=== PATIENT | male | born 1985 | race Caucasian/White ===

== ENCOUNTER 2019-04-25 02:45 | Emergency (ER) | payer OTHER ==
[~2019-04-25] VITALS: Ht 175.3 cm; Wt 86.4 kg
[~2019-04-25 02:45] MED LIST: AUGM875T27 PO; CLAR10CA3 PO; OXYC1TAB23 PO; RALTEGRAVIR 400 MG TAB (ISENTRESS) PO SCH; TRUVADA 200MG/300MG TABLET PO SCH
[2019-04-25] MEDS ORDERED: [UNRECOGNIZED DRUG - OTHER] IM ONE (03:30)
[2019-04-25] MEDS ORDERED: ADACEL/BOOSTRIX VACCINE (DIPHTH/PERTUSS/ACELL/TETANUS)0.5ML SYR (90715) IM ONE (03:30)
[2019-04-25 03:55] LABS: BASO # 0.1 10^3/uL (0.0-0.2); BASO % 0.6 % (0.0-1.0); EOS # 0.1 10^3/uL (0.0-0.5); EOS % 1.4 % (0.0-3.0); HEMATOCRIT 47.2 % (42.0-52.0); HEMOGLOBIN 16.2 g/dl (13.5-17.5); LYMPH # 2.1 10^3/uL (1.5-5.0); LYMPH % 23.5 % (24.0-44.0); MEAN CORPUSCULAR HEMOGLOBIN 31.8 pg (27.0-33.0); MEAN CORPUSCULAR HGB CONC 34.3 g/dl (32.0-36.5); MEAN CORPUSCULAR VOLUME 92.5 fl (80.0-96.0); MONO # 0.7 10^3/uL (0.0-0.8); MONO % 8.4 % (0.0-5.0); NEUTROPHILS # 5.8 10^3/uL (1.5-8.5); NEUTROPHILS % 65.9 % (36.0-66.0); PLATELET COUNT, AUTOMATED 223 10^3/uL (150-450); WHITE BLOOD COUNT 8.8 10^3/uL (4.0-10.0)
[2019-04-25 04:19] LABS: ALBUMIN 4.1 GM/DL (3.2-5.2); ALT/SGPT 57 U/L (12-78); BILIRUBIN,TOTAL 0.5 MG/DL (0.2-1.0); BLOOD UREA NITROGEN 8 MG/DL (7-18); CALCIUM LEVEL 8.8 MG/DL (8.5-10.1); CARBON DIOXIDE LEVEL 27 MEQ/L (21-32); CHLORIDE LEVEL 104 MEQ/L (98-107); CREATININE FOR GFR 0.95 MG/DL (0.70-1.30); GLOMERULAR FILTRATION RATE > 60.0 (>60); GLUCOSE, FASTING 108 MG/DL (70-100); POTASSIUM SERUM 3.4 MEQ/L (3.5-5.1); SODIUM LEVEL 139 MEQ/L (136-145); TOTAL PROTEIN 7.5 GM/DL (6.4-8.2)
[2019-04-25] MEDS ORDERED: RALT40TA PO ×2 (04:41→04:44)
[2019-04-25] MEDS ORDERED: TRUVTAB PO ×2 (04:41→04:44)
[2019-04-25] MEDS ORDERED: EXPOSURE KIT-ADULT 7 DAY SUPPLY PO ONE (04:45)
[2019-04-25 04:55] VITALS: BP 146/92
[2019-04-26 10:55] LABS: HEPATITIS B SURFACE ANTIBODY NEGATIVE (POSITIVE)
[2019-04-26 11:05] LABS: HEPATITIS B SURFACE ANTIGEN NEGATIVE (NEGATIVE)
[2019-04-26 11:34] LABS: HEPATITIS C VIRUS ABY INDEX 0.1 INDEX (<0.8); HIV 1&2 SCREEN CENTAUR NEGATIVE (NEGATIVE)
== END 2019-04-25 05:46 | disposition home or self-care (01) ==
LOC: M ED 02:45
DX: S81.832A Puncture wound without foreign body, left lower leg, initial encounter (principal); W46.0XXA Contact with hypodermic needle, initial encounter; Y92.89 Other specified places as the place of occurrence of the external cause; Y99.0 Civilian activity done for income or pay; Z77.21 Contact with and (suspected) exposure to potentially hazardous body fluids; Z79.899 Other long term (current) drug therapy; J30.1 Allergic rhinitis due to pollen; J30.81 Allergic rhinitis due to animal (cat) (dog) hair and dander; F17.210 Nicotine dependence, cigarettes, uncomplicated

== ENCOUNTER → 2019-06-06 | Outpatient (REF) | payer OTHER ==
[~2019-06-06] MED LIST changes: +RALT40TA PO; -RALTEGRAVIR 400 MG TAB (ISENTRESS) PO SCH; -TRUVADA 200MG/300MG TABLET PO SCH; +TRUVTAB PO
[2019-06-06 11:18] LABS: ALBUMIN 4.1 GM/DL (3.2-5.2); ALT/SGPT 59 U/L (12-78); BLOOD UREA NITROGEN 10 MG/DL (7-18); CARBON DIOXIDE LEVEL 29 MEQ/L (21-32); CHLORIDE LEVEL 104 MEQ/L (98-107); CHOLESTEROL LEVEL 170 MG/DL (<200); CHOLESTEROL RISK RATIO 3.541 (<5); CREATININE FOR GFR 0.94 MG/DL (0.70-1.30); GLOMERULAR FILTRATION RATE > 60.0 (>60); GLUCOSE, FASTING 99 MG/DL (70-100); HDL CHOLESTEROL 48 MG/DL (>40); LDL CHOLESTEROL 104 MG/DL (<100); NON-HDL-C 122 MG/DL; POTASSIUM SERUM 4.2 MEQ/L (3.5-5.1); SODIUM LEVEL 140 MEQ/L (136-145); TOTAL PROTEIN 7.8 GM/DL (6.4-8.2); TRIGLYCERIDES LEVEL 92 MG/DL (<150)
[2019-06-07 09:50] LABS: HEPATITIS B SURFACE ANTIGEN NEGATIVE (NEGATIVE)
[2019-06-07 09:51] LABS: HEPATITIS B SURFACE ANTIBODY NEGATIVE (POSITIVE)
[2019-06-07 10:26] LABS: HIV 1&2 SCREEN CENTAUR NEGATIVE (NEGATIVE)
== END ==
LOC: M SFHCPLAZ 08:16
PROVIDERS: ATTEND Family Medicine
DX: Z13.220 Encounter for screening for lipoid disorders (principal); W27.3XXA Contact with needle (sewing), initial encounter; X58.XXXA Exposure to other specified factors, initial encounter

== ENCOUNTER → 2019-07-29 | Outpatient (CLI) | payer OTHER ==
[2019-08-02 11:06] LABS: HEPATITIS B SURFACE ANTIBODY NEGATIVE (POSITIVE); HEPATITIS B SURFACE ANTIGEN NEGATIVE (NEGATIVE); HEPATITIS C VIRUS ABY INDEX 0.2 INDEX (<0.8); HIV 1&2 SCREEN CENTAUR NEGATIVE (NEGATIVE)
== END ==
LOC: M PLALAB 14:20
PROVIDERS: ATTEND Family Medicine
DX: T14.8XXA Other injury of unspecified body region, initial encounter (principal); W27.3XXA Contact with needle (sewing), initial encounter; Y92.89 Other specified places as the place of occurrence of the external cause

== ENCOUNTER → 2019-12-18 | Outpatient (REF) | payer OTHER ==
[2019-12-18 15:35] LABS: HEPATITIS B SURFACE ANTIGEN NEGATIVE (NEGATIVE); HIV 1&2 SCREEN CENTAUR NEGATIVE (NEGATIVE)
== END ==
LOC: M SFHCPLAZ 09:15
PROVIDERS: ATTEND Family Medicine
DX: Z11.59 Encounter for screening for other viral diseases (principal); W27.3XXD Contact with needle (sewing), subsequent encounter; Y99.8 Other external cause status

== ENCOUNTER → 2022-08-26 | Outpatient (REF) | payer OTHER ==
[~2022-08-26] MED LIST changes: +EMTR1TAB16 PO; -TRUVTAB PO
== END ==
LOC: M WUC 16:06
PROVIDERS: ATTEND Physician Assistant
DX: J02.9 Acute pharyngitis, unspecified (principal)

== ENCOUNTER 2023-07-30 11:59 | Emergency (ER) | payer OTHER ==
[~2023-07-30] VITALS: Ht 175.3 cm; Wt 78.1 kg
[~2023-07-30 11:59] MED LIST changes: +OMEP40CA4 PO
[2023-07-30 12:35] LABS: BASO % 0.6 % (0.0-1.0); EOS # 0.1 10^3/uL (0.0-0.5); EOS % 1.1 % (0.0-3.0); HEMATOCRIT 42.6 % (42.0-52.0); HEMOGLOBIN 14.1 g/dl (13.5-17.5); LYMPH # 1.2 10^3/uL (1.5-5.0); LYMPH % 16.9 % (24.0-44.0); MEAN CORPUSCULAR HEMOGLOBIN 28.4 pg (27.0-33.0); MEAN CORPUSCULAR HGB CONC 33.1 g/dl (32.0-36.5); MEAN CORPUSCULAR VOLUME 85.7 fl (80.0-96.0); MONO # 0.8 10^3/uL (0.0-0.8); MONO % 10.8 % (2.0-8.0); NEUTROPHILS % 70.5 % (36.0-66.0); PLATELET COUNT, AUTOMATED 215 10^3/uL (150-450); RED BLOOD COUNT 4.97 10^6/uL (4.30-6.10); WHITE BLOOD COUNT 7.1 10^3/uL (4.0-10.0)
[2023-07-30 13:05] LABS: LIPASE 43 U/L (12-53)
[2023-07-30 13:07] LABS: ALBUMIN 3.8 G/DL (3.2-5.2); ALKALINE PHOSPHATASE 73 U/L (46-116); ALT/SGPT 49 U/L (7.0-40); AST/SGOT 34 U/L (<34); BILIRUBIN,DIRECT 0.3 MG/DL (<0.4); BILIRUBIN,TOTAL 0.9 MG/DL (0.3-1.2); BLOOD UREA NITROGEN 11 MG/DL (9-23); CALCIUM LEVEL 8.6 MG/DL (8.5-10.1); CARBON DIOXIDE LEVEL 26 MMOL/L (20-31); CHLORIDE LEVEL 104 MMOL/L (98-107); CREATININE FOR GFR 0.67 MG/DL (0.70-1.30); GLOMERULAR FILTRATION RATE > 60.0 (>60); GLUCOSE, FASTING 100 MG/DL (60-100); POTASSIUM SERUM 3.9 MMOL/L (3.5-5.1); SODIUM LEVEL 137 MMOL/L (136-145); TOTAL PROTEIN 7.2 G/DL (5.7-8.2)
[2023-07-30] MEDS ORDERED: ISOVUE-370 76% 100ML VIAL As Ordered ONE (16:01)
[2023-07-30 18:21] VITALS: BP 162/94; TEMP 98.4; O2SAT 99
== END 2023-07-30 18:23 | disposition home or self-care (01) ==
LOC: M ED 11:59
DX: K59.00 Constipation, unspecified (principal); R10.9 Unspecified abdominal pain; J45.909 Unspecified asthma, uncomplicated; K21.9 Gastro-esophageal reflux disease without esophagitis; F17.210 Nicotine dependence, cigarettes, uncomplicated; Z79.899 Other long term (current) drug therapy
CPT/HCPCS: 36415; 74177; 80048; 80076; 81001; 83605; 83690; 85025; 99283; Q9967

== ENCOUNTER → 2023-08-22 | Outpatient (REF) | payer OTHER | LOC: M LABWUC 16:39 | PROVIDERS: ATTEND Student in an Organized Health Care Education/Training Program | DX: R25.1 Tremor, unspecified (principal) ==

== ENCOUNTER → 2023-09-21 | Outpatient (REF) | payer OTHER | LOC: M SFHCPLAZ 10:46 → M LAB REF 10:46 | PROVIDERS: ATTEND Student in an Organized Health Care Education/Training Program | DX: K21.9 Gastro-esophageal reflux disease without esophagitis (principal) ==

== ENCOUNTER → 2023-11-13 | Outpatient (CLI) | payer OTHER ==
[2023-11-13 15:44] LABS: HEMATOCRIT 47.6 % (42.0-52.0); HEMOGLOBIN 15.5 g/dl (13.5-17.5); MEAN CORPUSCULAR HEMOGLOBIN 27.5 pg (27.0-33.0); MEAN CORPUSCULAR HGB CONC 32.6 g/dl (32.0-36.5); MEAN CORPUSCULAR VOLUME 84.4 fl (80.0-96.0); PLATELET COUNT, AUTOMATED 241 10^3/uL (150-450); RED BLOOD COUNT 5.64 10^6/uL (4.30-6.10); WHITE BLOOD COUNT 7.9 10^3/uL (4.0-10.0)
[2023-11-13 17:49] LABS: HEMOGLOBIN A1c 4.9 % (4.0-6.0)
[2023-11-13 17:57] LABS: ALBUMIN 3.8 G/DL (3.2-5.2); ALKALINE PHOSPHATASE 79 U/L (46-116); ALT/SGPT 31 U/L (7.0-40); AST/SGOT 24 U/L (<34); BILIRUBIN,TOTAL 0.7 MG/DL (0.3-1.2); BLOOD UREA NITROGEN 9 MG/DL (9-23); CALCIUM LEVEL 8.8 MG/DL (8.5-10.1); CARBON DIOXIDE LEVEL 24 MMOL/L (20-31); CHLORIDE LEVEL 107 MMOL/L (98-107); CHOLESTEROL LEVEL 159 MG/DL (<200); CHOLESTEROL RISK RATIO 2.09 (<5); CREATININE FOR GFR 0.69 MG/DL (0.70-1.30); GLOMERULAR FILTRATION RATE > 60.0 (>60); GLUCOSE, FASTING 163 MG/DL (60-100); LDL CHOLESTEROL 68.4 MG/DL (<100); POTASSIUM SERUM 4.3 MMOL/L (3.5-5.1); SODIUM LEVEL 138 MMOL/L (136-145); TOTAL PROTEIN 7.4 G/DL (5.7-8.2); TRIGLYCERIDES LEVEL 73 MG/DL (<150)
== END ==
LOC: M PLALAB 14:03
PROVIDERS: ATTEND Student in an Organized Health Care Education/Training Program
DX: Z00.00 Encounter for general adult medical examination without abnormal findings (principal); Z13.220 Encounter for screening for lipoid disorders; Z13.1 Encounter for screening for diabetes mellitus; K76.0 Fatty (change of) liver, not elsewhere classified

== ENCOUNTER → 2024-01-04 | Outpatient (CLI) | payer OTHER ==
[2024-01-04 19:22] LABS: BLOOD UREA NITROGEN < 5 MG/DL (9-23); CARBON DIOXIDE LEVEL 31 MMOL/L (20-31); CHLORIDE LEVEL 102 MMOL/L (98-107); CREATININE FOR GFR 0.78 MG/DL (0.70-1.30); GLOMERULAR FILTRATION RATE > 60.0 (>60); GLUCOSE, FASTING 94 MG/DL (60-100); POTASSIUM SERUM 4.8 MMOL/L (3.5-5.1); SODIUM LEVEL 138 MMOL/L (136-145)
== END ==
LOC: M PLALAB 14:42
PROVIDERS: ATTEND Student in an Organized Health Care Education/Training Program
DX: R00.2 Palpitations (principal)

== ENCOUNTER → 2024-01-04 | Outpatient (REF) | payer OTHER | LOC: M SFHCPLAZ 14:10 | PROVIDERS: ATTEND Internal Medicine Hematology | DX: Z53.9 Procedure and treatment not carried out, unspecified reason (principal) ==

== ENCOUNTER → 2024-02-26 | Outpatient (CLI) | payer OTHER | LOC: M RAD 08:13 | PROVIDERS: ATTEND Student in an Organized Health Care Education/Training Program | DX: K76.0 Fatty (change of) liver, not elsewhere classified (principal); R79.89 Other specified abnormal findings of blood chemistry ==

== ENCOUNTER 2024-06-18 06:36 | Day surgery (SDC) | payer OTHER ==
[~2024-06-18] VITALS: Ht 175.3 cm; Wt 80.1 kg
[~2024-06-18 06:36] MED LIST changes: +ASPI-226 PO; +DILT0.05 PO; +FLUTISP INH; +METO1TAB87 PO; +OMEP40CA5 PO; +ROSU20TA86 PO
[2024-06-18] MEDS ORDERED: fentaNYL 100 MCG/2 ML INJECTION As Ordered ONE (07:46)
[2024-06-18 08:26] VITALS: TEMP 97.6
[2024-06-18] MEDS ORDERED: propofoL 200 MG/20 ML VIAL As Ordered ONE (08:30)
[2024-06-18 08:45] VITALS: BP 162/99; O2SAT 97
== END 2024-06-18 08:50 | disposition home or self-care (01) ==
LOC: M OPP 06:36
PROVIDERS: ATTEND Surgery
DX: K44.9 Diaphragmatic hernia without obstruction or gangrene (principal); K31.89 Other diseases of stomach and duodenum; K21.9 Gastro-esophageal reflux disease without esophagitis; J45.909 Unspecified asthma, uncomplicated; F17.210 Nicotine dependence, cigarettes, uncomplicated; Z91.048 Other nonmedicinal substance allergy status; Z79.899 Other long term (current) drug therapy
CPT/HCPCS: 43239; 88305; J3010

== ENCOUNTER 2024-08-26 10:55 | Day surgery (SDC) | payer OTHER ==
[~2024-08-26] VITALS: Ht 175.3 cm; Wt 80.6 kg
[~2024-08-26 10:55] MED LIST changes: +SIME1CAP4 PO
[2024-08-26] MEDS ORDERED: NS (Normal Saline) 0.9% 1,000 ML IV SCH ×2 (11:25→14:30)
[2024-08-26] MEDS ORDERED: MIDAZOLAM INJ 2MG/2ML VIAL As Ordered ONE (14:00)
[2024-08-26] MEDS ORDERED: LIDOCAINE 2% 100MG/5ML SDV (FOR ANES.) As Ordered ONE (14:00)
[2024-08-26] MEDS ORDERED: propofoL 200 MG/20 ML VIAL As Ordered ONE (14:00)
[2024-08-26] MEDS ORDERED: fentaNYL 100 MCG/2 ML INJECTION As Ordered ONE (14:01)
[2024-08-26] MEDS ORDERED: ONDANSETRON 4MG 2ML VIAL As Ordered ONE (14:01)
[2024-08-26] MEDS: CIPRODEX OTIC SUSP 7.5ML As Ordered ONE (14:17)
[2024-08-26] MEDS ORDERED: ONDANSETRON 4MG 2ML VIAL IV PRN (14:30)
[2024-08-26] MEDS ORDERED: HYDROMORPHONE HCL 0.5 MG/ 0.5 ML SYRINGE IV PRN (14:30)
[2024-08-26] MEDS ORDERED: fentaNYL 100 MCG/2 ML INJECTION IV PRN (14:30)
[2024-08-26] MEDS ORDERED: oxyCODONE 5MG TAB PO PRN (14:30)
[2024-08-26 15:12] VITALS: BP 155/93; TEMP 98.3; O2SAT 97
== END 2024-08-26 15:36 | disposition home or self-care (01) ==
LOC: M SDC 10:55
PROVIDERS: ATTEND Otolaryngology
DX: H65.23 Chronic serous otitis media, bilateral (principal); H90.2 Conductive hearing loss, unspecified; J45.909 Unspecified asthma, uncomplicated; I35.9 Nonrheumatic aortic valve disorder, unspecified; F17.210 Nicotine dependence, cigarettes, uncomplicated; K21.9 Gastro-esophageal reflux disease without esophagitis; L30.9 Dermatitis, unspecified; Z79.899 Other long term (current) drug therapy; Z90.89 Acquired absence of other organs
CPT/HCPCS: 69436; J1100; J2250; J2405; J3010

== ENCOUNTER → 2025-06-04 | Outpatient (REF) | payer OTHER | LOC: M LAB REF 17:26 | PROVIDERS: ATTEND Nurse Practitioner Family | DX: R10.9 Unspecified abdominal pain (principal) ==

== ENCOUNTER → 2025-06-05 | Outpatient (REF) | payer OTHER | LOC: M LAB REF 17:07 | PROVIDERS: ATTEND Nurse Practitioner Family | DX: N39.0 Urinary tract infection, site not specified (principal) ==